=== PATIENT | female | born 1945 | race Caucasian/White ===

== ENCOUNTER 2019-05-09 10:35 | Inpatient (IN) ==
[2019-05-09] MEDS ORDERED: ZOFRAN IV PRN (12:14)
[2019-05-09] MEDS ORDERED: SODIUM CHLORIDE 0.9% INJ SCH (12:15)
[2019-05-09] MEDS ORDERED: PROTONIX IV SCH (12:15)
[2019-05-09] MEDS ORDERED: MORPHINE IV PRN (12:15)
[2019-05-09 14:38] LABS: BASO# 0.02 X1000 (0.0-0.2); BASO% 0.3 % (0.0-0.8); EOS# 0.07 X1000 (0.0-0.7); EOS% 1.1 % (0.0-10.0); HEMATOCRIT 35.6 % (37.0-47.0); HEMOGLOBIN 11.7 g/dL (12.0-16.0); LYMPH# 1.94 X1000 (1.2-3.4); LYMPH% 30.8 % (20.5-51.1); MCH 32.1 PG (27-31); MCHC 32.9 g/dL (33-37); MCV 97.8 FL (81-99); MONO# 0.39 X1000 (0.11-0.59); MONO% 6.2 % (1.7-9.3); MPV 8.8 FL (7.4-10.4); NEUT# 3.88 X1000 (1.4-6.5); NEUT% 61.6 % (42.2-75.2); PLT 267 X1000 (130-400); RBC 3.64 XMIL (4.2-5.4); RDW 12.6 % (11.5-14.5)
[2019-05-09 15:11] LABS: ALB/GLOB RATIO 1.5; ALBUMIN 4.3 g/dL (3.5-5.0); CALCIUM 9.1 mg/dL (8.8-10.2); CREATININE 1.2 mg/dL (0.5-0.9); POTASSIUM 3.9 mmol/L (3.5-5.1); TOTAL BILIRUBIN 0.36 mg/dL (0.20-1.00); TOTAL PROTEIN 7.2 g/dL (6.3-8.3)
[2019-05-09] MEDS: NORCO-10 PO PRN ×2 (16:38→22:43)
--- NOTE | 2019-05-09 18:12 | Diag Imaging Result Doc PS360 ---
EXAM: CT ABD/PELVIS W/IV CONT ONLY INDICATION: ABD PAIN TECHNIQUE: This exam was performed using automated exposure control, adjustment of mA or kV according to patient size, and/or use of iterative reconstruction technique. COMPARISON: None. FINDINGS: The liver, gallbladder, spleen, and adrenal glands are unremarkable. There is mild pancreatic atrophy at the head of the pancreas. The pancreas is unremarkable, otherwise. There are a few renal cysts bilaterally. The kidneys are unremarkable, otherwise. The urinary bladder is partially distended and is grossly unremarkable, otherwise. There has been a prior hysterectomy. There is significant thickening of the gastric wall that is mainly in the antrum and pyloric region but also, to a lesser degree, at the fundus. This probably represents gastritis. However, an infiltrative process such as gastric neoplasm cannot be completely excluded. There are several fluid-filled loops of small bowel with little distention that are nonspecific and probably represent mild enteritis. The remainder of the GI tract is essentially unremarkable. There is metallic hardware associated with the right femur. There are degenerative changes at the lower lumbar spine. There is no evidence of acute osseous abnormality. IMPRESSION: 1.Significant gastric wall thickening mainly involving the antrum and pylorus of the stomach that probably represents gastritis. Please see above discussion. 2.A few fluid-filled loops of small bowel with minimal distention that are nonspecific. Consider mild enteritis. 3.Other incidental/nonacute findings detailed above. Electronically signed by Patrick Nuñez 05/09/2019 6:10 PM
[2019-05-09] MEDS: 1/2 NS IV SCH (18:34)
[2019-05-09] MEDS: D5 IV SCH (18:34)
[2019-05-09] MEDS: POTASSIUM CHLORIDE IV SCH (18:34)
[2019-05-09 18:43] LABS: URINE SOURCE CLEAN CATCH
[2019-05-09 18:51] LABS: BILIRUBIN URINE NEGATIVE (NEGATIVE); BLOOD URINE NEGATIVE (NEGATIVE); COLOR STRAW; GLUCOSE URINE NEGATIVE (NEGATIVE); KETONE URINE NEGATIVE (NEGATIVE); LEUKOCYTES URINE NEGATIVE (NEGATIVE); NITRITE URINE NEGATIVE (NEGATIVE); PH URINE 6.5; PROTEIN URINE NEGATIVE (NEGATIVE); SP GRAVITY URINE 1.049; TURBIDITY URINE CLEAR (CLEAR); UROBILINOGEN URINE NORMAL (NORMAL)
[2019-05-09 18:52] LABS: UR EPITHELIAL CELLS <10 /HPF (<10); URINE BACTERIA NEGATIVE /HPF; URINE RBC <10 /HPF (<10); URINE WBC <10 /HPF (<10)
--- NOTE | 2019-05-09 19:09 | HISTORY AND PHYSICAL ---
HISTORY OF PRESENT ILLNESS: Ms. Roy, who is a 74-year-old, white female, was admitted because of severe abdominal pain. She had diffuse abdominal pain which started around 2 a.m., early this morning, and she vomited several times. She was doubling up with pain in the office. She does not have any constipation or diarrhea. Hence, she was hospitalized. She has a known case of severe degenerative disk disease in the lumbar spine, also has a history of hypertension. She has constant muscle spasm. PAST SURGICAL HISTORY: A history of hysterectomy which was performed twice. Initially, it was a partial hysterectomy. She had a right hip surgery for fracture and she had basal cell carcinoma removed from the nose. MEDICATIONS: Include hydrochlorothiazide, hydrocodone, lidocaine patch, Lidoderm patch, methocarbamol, and metoprolol succinate 50 mg daily. REVIEW OF SYSTEMS: Other than severe abdominal pain with recurrent vomiting, it was noncontributory. PHYSICAL EXAMINATION: VITAL SIGNS: Temperature 97.8 degrees Fahrenheit, pulse 66 per minute, respiratory rate 18 per minute, blood pressure 202/80. HEAD: Normocephalic. EYES: Pupils PERRLA. Fundus examination not done. NECK: Supple. JVP normal. EARS/NOSE/THROAT: Unremarkable. There is no evidence of lymphadenopathy, thyroid enlargement, pedal edema, calf tenderness, anemia, cyanosis, or clubbing. Pedal pulses well felt. BREAST: Normal. CHEST: Normal inspection. LUNGS: Clear on auscultation. PMI in the normal position. CARDIOVASCULAR: Heart sounds normal. No murmur, gallop, or rub noted. ABDOMEN: Nondistended, diffusely tender. No guarding, rigidity, free fluid, masses, or organomegaly. Bowel sounds present. RECTAL: Deferred. CENTRAL NERVOUS SYSTEM: Higher functions normal. Cranial nerves normal. Motor and sensory system examination unremarkable. Deep tendon reflexes normal. Plantars downgoing. Skull and spine examination normal for age. No cerebellar signs or signs of meningeal irritation on local motor exam. SKIN: Unremarkable. CLINICAL IMPRESSION: 1. Severe abdominal pain. 2. Recurrent vomiting. 3. Mild dehydration. PLAN: Start IV fluids as well as IV Protonix. Get GI consult later on. Get a CT scan of the abdomen. cc: Roshan Webster MD
[2019-05-09] MEDS ORDERED: ROBAXIN PO SCH (21:00)
[2019-05-09] MEDS: LOPRESSOR PO SCH (21:21)
[2019-05-10] MEDS: POTASSIUM CHLORIDE IV SCH (06:26)
[2019-05-10] MEDS: 1/2 NS IV SCH (06:26)
[2019-05-10] MEDS: D5 IV SCH (06:26)
[2019-05-10 07:51] VITALS: BP 147/69
[2019-05-10] MEDS ORDERED: HYDROCHLOROTHIAZIDE PO SCH (09:00)
[2019-05-10] MEDS: LOPRESSOR PO SCH (09:18)
[2019-05-10] MEDS: ROBAXIN PO SCH ×2 (09:18→13:30)
[2019-05-10] MEDS: NORCO-10 PO SCH ×2 (09:19→13:06)
[2019-05-10] MEDS ORDERED: DIPRIVAN 1% ONE (10:06)
[2019-05-10] MEDS ORDERED: XYLOCAINE-MPF 2% ONE (10:06)
--- NOTE | 2019-05-10 11:11 | ENDOSCOPY OPERATIVE NOTE ---
[facility] ENDOSCOPY OPERATIVE NOTE , PATIENT: Belgica Roy ADMISSION DATE: 05/10/2019 [facility]#: [id number] : 1945 [id number] EGD PROCEDURE REPORT PROCEDURE DATE: 05/10/2019 SURGEON: Og Saez MD STATUS: inpatient WAREHOUSE PICKER: PREOPERATIVE DIAGNOSIS: The patient is a 74 yr old female here for an EGD due to epigastric abdomina l pain and abnormal CT showing gastric wall thickening, weight loss. PROCEDURE PERFORMED: EGD w/ biopsy MEDICATIONS: Per Anesthesia TOPICAL ANESTHETIC: none CONSENT: The patient understands the risks and benefits of the procedure and understands that these r isks include, but are not limited to: sedation, allergic reaction, infection, perforation and/or bleeding. Alternative means of evaluation and treatment include, among others: physical exam, x-rays, and/or surgical intervention. The patient elects to proceed with this endoscopic procedure. HISORY AND PHYSICAL: 05/10/2019 function. Hand hygiene and appropriate measures for infection prevention was taken. After the risks, benefits and alternatives of the procedure were thoroughly explained, Informed consent was verified, confirmed and timeout was successfully executed by the treatment team. The patient was anesthetized with topical anesthesia and the [id number] ([id number]) endoscope was introduced through the mouth and advanced to the second portion of the duoden um. Retroflexion was performed in the stomach and revealed no abnormalities. The gastroscope was then slowly withdraw n and removed. ESOPHAGUS: The mucosa of the esophagus appeared normal. The z-line was noted at 40cm from the incis ors. The z-line appeared normal. STOMACH: Mild gastritis (inflammation) was found in the entire examined stomach. A biopsy was perfor med using cold forceps. Sample sent for histology. Two non-bleeding, irregular shaped cratered ulcers (one clean- based and other with red spot) ranging between 5-9mm in size were found in the gastric antrum. DUODENUM: Normal SPECIMENS REMOVED: Yes ADVERSE EVENTS: There were no complications. POSTOPERATIVE DIAGNOSIS: ESOPHAGUS: The mucosa of the esophagus appeared normal. The z-line was noted at 40cm from the incis ors. The z-line appeared normal. STOMACH: Mild gastritis (inflammation) was found in the entire examined stomach. A biopsy was perfor med using cold forceps. Sample sent for histology. Two non-bleeding, irregular shaped cratered ulcers (one clean- based and other with red spot) ranging between 5-9mm in size were found in the gastric antrum. DUODENUM: Normal RECOMMENDATIONS: 1. Await biopsy results 2. Start protonix 40mg PO BID and continue for 3 months 3. Avoid NSAIDs and aspirin 4. Advance diet as tolerated 5. Patient okay to be discharged from [facility] with follow-up in 2 weeks REPEAT EXAM: Return in 2 months for EGD and routine screening colonoscopy. Og Saez MD eSigned: Og Saez MD 05/10/2019 11:11 AM cc: PATIENT NAME: Belgica Roy MR#: [id number]
--- NOTE | 2019-05-10 11:28 | GASTROENTEROLOGY CONSULTATION ---
DATE: 05/10/2019 REASON FOR CONSULTATION: Abdominal pain, abnormal CT. HISTORY OF PRESENT ILLNESS: Ms. Belgica Roy is a 74-year-old woman with past medical history of osteoporosis, GERD on Nexium, chronic back pain on [place] and Robaxin, history of facial skin cancer, history of iron deficiency anemia, who presents with 1-day history of severe dull periumbilical and epigastric pain that started 1 day ago. The patient reports waking up at 1 a.m. with sudden onset of pain with associated nonbloody, nonbilious emesis. She denies any changes in her bowel habits including diarrhea, constipation, rectal bleeding or melena. She has noticed that she has had abnormal weight loss over the last month unintentionally with 7 pounds of weight loss. She denies any fevers, chills, sweats. No sick contacts, or changes in her medications. No recent travel. No NSAID or blood thinner use. She does report having a prior EGD over 30 years ago. No prior colonoscopy. REVIEW OF SYSTEMS: As per HPI, otherwise 12-point review of systems is negative. PAST MEDICAL HISTORY: Chronic back pain, hypertension, osteoporosis, GERD, history of iron deficiency anemia, history of skin cancer. PAST SURGICAL HISTORY: Hip femur fracture status post repair, hysterectomy. No other abdominal surgeries. Surgery for her skin cancer, facial. FAMILY HISTORY: Mother has a history of skin cancer. Sister had breast cancer. SOCIAL HISTORY: No smoking, alcohol or drug use. MEDICATIONS: She takes [place], Robaxin, Nexium, metoprolol, hydrochlorothiazide, lidocaine patch. ALLERGIES: Aspirin. PHYSICAL EXAMINATION: Vital Signs: Temperature of 97.8 degrees, heart rate of 59, respiratory rate 16, blood pressure 147/69, O2 saturation 100% on room air. General: The patient is awake, alert, oriented, no acute distress. HEENT: Sclerae anicteric. Moist mucous membranes. Extraocular motor intact. Neck: Supple. No JVD or lymphadenopathy. Cardiac: Regular rate and rhythm. No murmurs. Lungs: Clear to auscultation bilaterally. No wheezing. Abdomen: Soft, tender to palpation in the epigastric region. Nondistended. Bowel sounds are present. No rebound or guarding. Extremities: No clubbing, cyanosis, or edema. Neurologic: Cranial nerves 2-12 grossly intact. Moving all extremities symmetrically. LABS: White count of 6.3, hemoglobin is 11.7, MCV of 97.8, platelets of 267. Sodium 137, potassium of 3.9, chloride 103, bicarbonate 23. BUN of 18, creatinine of 1.2. LFTs are normal. Lipase of 67. UA is normal. IMAGING: CT of the abdomen and pelvis shows significant gastric wall thickening mainly involving the antrum and pylorus of the stomach that probably represents gastritis. A few fluid-filled loops of small bowel with minimal distention that are nonspecific. Cannot rule out infiltrative process such as gastric neoplasm. The liver, gallbladder, spleen, and adrenal glands are unremarkable. There is mild pancreatic atrophy of the head of the pancreas, otherwise unremarkable. Prior hysterectomy. ASSESSMENT AND PLAN: Ms. Belgica Oconnell is a 74-year-old woman with past medical history of gastroesophageal reflux disease, who presents with acute onset abdominal pain with associated nonbloody, nonbilious emesis. She has notable normocytic anemia. The patient does report having iron deficiency in the past and taking iron from unclear etiology. She is not on any blood thinners or nonsteroidal anti-inflammatory drugs. Her CT is notable for a gastric wall thickening and nonspecific fluid-filled loops of small bowel. She has had some abnormal weight loss over the last month. I am concerned for possibly either gastric malignancy, peptic ulcer disease, less likely colon cancer, but cannot rule that out given her notable anemia and absence of prior colorectal cancer screening. We will keep her on nothing by mouth right now as the patient will need a diagnostic esophagogastroduodenoscopy. Her last intake of clear fluids was at 8:30 a.m. this morning. For her nausea, vomiting, please give her antiemetics as needed, pain control as needed. Further recommendations post procedure. # Abdominal pain # N/V # Abnormal CT # Anemia # GERD # Weight loss Thank you for this consult. We will follow with you. Please call with any questions or concerns. cc: Roshan Webster MD MTDD
--- NOTE | 2019-05-10 12:24 | PROGRESS NOTE ---
DATE: 05/10/2019 SUBJECTIVE: Ms. Roy is feeling much better. She had an endoscopic procedure done which revealed 2 ulcers in the stomach with some gastritis, and she is feeling better. She will be discharged today. cc: Roshan Webster MD
--- NOTE | 2019-05-10 13:14 | DISCHARGE SUMMARY ---
ADMISSION DATE: 05/09/2019 DISCHARGE DATE: 05/10/2019 HOSPITAL COURSE: Ms. Roy is a 74-year-old white female who was admitted with severe abdominal pain and vomiting. CT scan of the abdomen revealed thick stomach wall indicating presence of possible gastritis and a few fluid-filled bowel loops. Endoscopic procedure was done by Dr. Saez who found that she did have mild gastritis, and she had 2 nonbleeding irregular shapes greater ulcers, the size was 5 to 9 mm in the gastric antrum area. She was prescribed Protonix 40 mg b.i.d. He wants to continue that for 3 months, and then she will be discharged today. FINAL DIAGNOSIS: 1. Acute gastritis. 2. Two peptic ulcers. 3. Abdominal pain. cc: Roshan Webster MD
[2019-05-10] MEDS ORDERED: PERIDEX MT SCH (21:00)
[2019-05-10] MEDS ORDERED: PROTONIX PO SCH (21:00)
== END 2019-05-10 15:21 | disposition home or self-care (01) | DRG 384 ==
LOC: DIRADM 10:35 → EDIPHOLD 11:45 → 4N 17:46
PROVIDERS: ADMIT Internal Medicine; ATTEND Internal Medicine